=== PATIENT | male | born 1940 | race Hispanic/Latino ===

== ENCOUNTER 2019-09-11 11:04 | Emergency (ER) | payer MEDICARE ==
[2019-09-11 14:11] VITALS: BP 114/66
[2019-09-11 14:22] LABS: Bacteria,Urine 1+ /HPF (Negative); Bilirubin,Urine NEG (Negative); Blood,Urine NEG (Negative); Color,Urine Yellow (Yellow); Protein,Urine <15 mg/dL mg/dL (Negative)
--- NOTE | 2019-09-11 14:28 | Emergency Department Report ---
ED General Adult HPI - General Chief complaint: Extremity Injury, Lower Stated complaint: LEG PAIN Time Seen by Provider: 09/11/19 13:46 Source: EMS Mode of arrival: Stretcher Limitations: Physical Limitation (patient hx dementia poor historian. ) - History of Present Illness Initial comments: ER nurse reports EMS and NH sent patient to the ER with complaints of chronic bilateral knee pain. Reports patient has been urinating alot more lately also. Severity scale (0 -10): 0 - Related Data Allergies Allergy/AdvReac Type Severity Reaction Status Date / Time No Known Allergies Allergy Unverified 09/11/19 14:03 ED Review of Systems ROS: Stated complaint: LEG PAIN Other details as noted in HPI Other: GENERAL: No weight change, fatigue, fever, chills, or night sweats SKIN: No changes in skin or hair, no itching, no rashes, no jaundice HEAD: No trauma EYES: No blurriness, tearing, itching, acute visual loss, conjunctival discoloration, or scleral icterus EARS: No hearing loss, tinnitus, vertigo, or earache NOSE: No rhinorrhea, stuffiness, sneezing, itching, or epistaxis MOUTH: No bleeding gums, hoarseness, sore throat, or swelling CARDIAC: No new murmur, chest pain, palpitations, dyspnea on exertion, orthopnea, PND, or edema RESPIRATORY: No shortness of breath, wheeze, cough, sputum production, hemoptysis GI: No nausea, vomiting, dysphagia, diarrhea, constipation, hematemesis, melena, hematochezia, or abdominal pain URINARY: frequency. No urgency, polyuria, dysuria, hematuria, or incontinence MUSCULOSKELETAL: Bilateral knee pain chronic. No muscle weakness, joint stiffness, decrease in range of motion, redness, swelling NEUROLOGIC: No headache, syncope, loss of sensation, numbness, tingling, tremors, weakness, paralysis, seizures HEMATOLOGIC: No anemia, easy bruising, bleeding, petechiae, or purpura ENDOCRINE: No hot or cold intolerance, sweating, polyuria, polydipsia or, polyphagia no thyroid problems PSYCHIATRIC: No change in mood, no anxiety, no depression ED Past Medical Hx - Past Medical History Previous Medical History?: Yes Hx Hypertension: Yes Hx Dementia: Yes - Social History Smoking Status: Never Smoker Substance Use Type: None ED Physical Exam - General Limitations: Physical Limitation - Other Other exam information: GENERAL: Patient in no acute distress HEAD: Normocephalic, atraumatic EYES: PERRLA, EOM intact, no scleral icterus, no conjunctival hemorrhage, visual moseley and acuity wnl NOSE: No tenderness, discharge, sinus tenderness MOUTH: No erythema, bleeding, exudate HEART: Regular rate and rhythm, no murmur, S1-S2 are auscultated, no edema, pulses are symmetric LUNGS: No respiratory distress. Bilateral breath sounds, No tachypnea, No retractions, No wheezing, rales, rhonchi ABDOMEN: Normal bowel sounds, abdomen soft, no tenderness, no rebound, no guarding, no distention, no masses, no CVA tenderness MUSCULOSKELETAL: Normal joint range of motion, no redness, no swelling, no tenderness NEUROLOGIC: Alert, Cranial nerves intact, normal sensation, normal strength, no cerebellar deficit SKIN: Skin is warm and dry, no wounds, no rashes ED Course Vital Signs 09/11/19 09/11/19 09/11/19 11:20 11:22 11:26 Temperature 98.2 F 98.2 F Pulse Rate 62 61 60 Respiratory 17 23 18 Rate Blood Pressure 116/64 Blood Pressure 116/64 [Left] O2 Sat by Pulse 97 96 97 Oximetry 09/11/19 09/11/19 09/11/19 11:30 11:45 12:00 Temperature Pulse Rate 61 59 L 56 L Respiratory 25 H 13 22 Rate Blood Pressure 116/64 103/67 106/62 Blood Pressure [Left] O2 Sat by Pulse 97 97 94 Oximetry 09/11/19 09/11/19 09/11/19 12:15 12:30 12:45 Temperature Pulse Rate 57 L 54 L 55 L Respiratory 26 H 25 H 27 H Rate Blood Pressure 113/67 102/62 110/65 Blood Pressure [Left] O2 Sat by Pulse 97 94 97 Oximetry 09/11/19 09/11/19 09/11/19 13:00 13:16 13:30 Temperature Pulse Rate 58 L 62 60 Respiratory 22 26 H 15 Rate Blood Pressure 114/66 114/66 114/66 Blood Pressure [Left] O2 Sat by Pulse 97 94 96 Oximetry 09/11/19 09/11/19 13:46 14:00 Temperature Pulse Rate 55 L 59 L Respiratory 20 13 Rate Blood Pressure 114/66 114/66 Blood Pressure [Left] O2 Sat by Pulse 97 95 Oximetry ED Medical Decision Making - Radiology Data interpreted by me: Patient comfortable. Reports symptom improvement. Updated with results. Plan admit for further evaluation. Hospitalist updated and accepts admission. - Medical Decision Making Plan conservative meausres. Patient comfortable. Plan discharge with outpatient follow up. Return if any worsening. Critical care attestation.: If time is entered above; I have spent that time in minutes in the direct care of this critically ill patient, excluding procedure time. 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
== END 2019-09-11 16:39 | disposition home or self-care (01) ==
LOC: ED 11:04
DX: M17.0 Bilateral primary osteoarthritis of knee (principal); R30.0 Dysuria; G89.29 Other chronic pain; I10 Essential (primary) hypertension
CPT/HCPCS: 81001; 87086; 99284